=== PATIENT | male | born 1990 | race Caucasian/White ===

== ENCOUNTER 2017-03-31 12:11 | Day surgery (SDC) | payer OTHER ==
[2017-03-31] VITALS (7 sets, daily range): BP systolic 107–129; BP diastolic 75–88; PULSE 82–116; RESP 13–18; O2SAT 96–99
[~2017-03-31] VITALS: Ht 172.7 cm; Wt 72.2 kg
[~2017-03-31 12:11] MED LIST: ATOM80CA PO; BUPR75TA10 PO; CLIN300C3 PO; CeFAZolin Inj 2 GM in IV Premix 1 EACH IV ONE; IBUP-1827 PO; Lactated Ringer's 1,000 ML IV SCH; RES15 PO
[2017-03-31] MEDS ORDERED: Propofol 10,000 mCg/mL 20 mL Inj ONE (12:12)
[2017-03-31] MEDS ORDERED: fentaNYL-PF 50 mCg/mL 2 mL Inj ONE (12:12)
[2017-03-31] MEDS ORDERED: Ondansetron 2 mg/mL 2 mL Inj ONE (12:12)
[2017-03-31] MEDS ORDERED: Lidocaine PF 1% 30 mL Inj ONE (12:12)
[2017-03-31] MEDS: Lactated Ringer's 1,000 ML IV SCH ×2 (12:28→18:57)
[2017-03-31] MEDS ORDERED: CeFAZolin Inj 2 gm / 50mL D5W IV ONE (12:41)
[2017-03-31] MEDS ORDERED: EPHEDrine Sulfate 50 mg/mL Inj IVPUSH PRN (15:00)
[2017-03-31] MEDS ORDERED: fentaNYL-PF 50 mCg/mL 2 mL Inj IVPUSH PRN (15:00)
[2017-03-31] MEDS ORDERED: Dexamethasone 4 mg/mL Inj IVPUSH PRN (15:00)
[2017-03-31] MEDS ORDERED: Ondansetron 2 mg/mL 2 mL Inj IVPUSH PRN (15:00)
[2017-03-31] MEDS ORDERED: Lactated Ringer's 500 ML IV PRN (15:00)
[2017-03-31] MEDS ORDERED: Lactated Ringer's 1,000 ML IV SCH (15:00)
[2017-03-31] MEDS ORDERED: HYDROmorphone 1 mg/mL Inj IVPUSH PRN (15:00)
[2017-03-31] MEDS ORDERED: Phenylephrine 10,000 mCg/mL Inj IVPUSH PRN (15:00)
[2017-03-31] MEDS ORDERED: MetoCLOpramide 5 mg/mL 2 mL Inj IVPUSH PRN (15:00)
--- NOTE | 2017-03-31 15:00 | PCM.HPANE ---
Patient Data Date of Service: March 31, 2017 Surgeon Admitting Provider: Attending Provider:Genaro John MD Primary Care Physician:Nopduncan Other Provider:Sumeet De La Cruz Anesthesia Reason for Visit Left Long Finger Extensor Tendon Laceration Ht/WT & BMI Height (Feet): 5 Height (Inches): 8 Weight (Kilograms): 72.2 Body Mass Index .00 Allergies Coded Allergies: No Known Allergies (Unverified , 03/31/17) Past Anesthesia History Anesthesia History: Denies:: Fam Anesthesia Reaction, Fam Malignant Hypertherm Diabetes History Hx Diabetes?: No MRSA MRSA: No Medications Hypertension Medication: No Home Meds Incl Beta Jose: No Reported Medications Temazepam 15 Mg [id number] Mg PO HS PRN For Insomnia 30 Days Ref 0 03/30/17 Atomoxetine (Strattera)80 Mg [id number] Mg PO BID 03/30/17 Ibuprofen 600 Mg [id number] Mg PO QID PRN For Pain Ref 0 03/30/17 Clindamycin HCl (Cleocin)300 Mg [id number] Mg PO Q8H x 7 days ?start 03/07/17 03/30/17 Bupropion 75 Mg [id number] Mg PO DAILY Ref 0 03/30/17 History History of ENT Problems?: No HEENT History: Denies:: Abnormal Airway Denture Type: None Teeth Condition: Within Normal Limits Hx of Heart Problems?: No Cardiovascular History: Denies:: Heart Murmur Hypertension Hx of Respiratory Problem?: No Respiratory History: Denies:: Use of C-PAP Machine Hx Neurologic Problems?: No Hx of GI Problems?: No Hx of Problems?: No Male Hx: Denies:: Prostate Problems Scrotal Mass Testicular Surgery Skin History: Denies:: History Skin Disorders? Pressure Ulcers Hx Musculoskeletal Problems?: Yes Musculoskeletal History: Positive for:: Musculoskeletal Trauma (LT LONG FINGER EXTENSOR TEWNDON LACERATION=CURRENT PROBLEM (DOI 03/27/17)) Hx of Psycho/Social Problems?: Yes Psycho Social History: Positive for:: Anxiety Hx Depression Other History/Comment ADD Hx Surgeries?: No Hx Any Other Health Problems?: No Other History: Denies:: Cancer Endocrine Disease Hospitalization Thyroid Disease Hx Diabetes: No Hx Alcohol Use: YesHx Substance Use: No Smoking Status: Former Smoker Have You Smoked inLast 12 mo: No Stop/Bang Treated for Sleep Apnea?: No Do You Have a CPAP Machine?: No S-Snoring: Do You Snore Loudly: No T-Tired: feel tired, fatigued: No O-Obsered: Observed not breath: No P-Blood Pressure: treated: No B- Body Mass Index > 35 kg/m2: No A- Age over 50: No N- Neck Large Circumference: No G- Gender Male: Yes YOSVANY Total Score: 1 YOSVANY Risk Assessment: Low Risk, <3 Yes Risk Assessment Category Category 1A: Patient has history of documented sleep apnea, and HAS NOT received any narcotic, sedative or anesthesia administration during this stay. Category 1B: Patient has history of documented sleep apnea, and HAS received any narcotic , sedative or anesthesia administration during this stay Category 2: Patient has SUSPECTED Obstructive Sleep Apnea, and HAS received any narcotic , sedative or anesthesia administration during this stay. Category 3: Patient has SUSPECTED Obstructive Sleep Apnea and HAS NOT received narcotic, sedative or anesthesia administration during this stay. Category 4: Outpatient in Procedural Areas with known sleep apnea or who screen positive for High Risk via the STOP/BANG questionnaire. Exam Exam Vital Signs Vital Signs Date Time Temp Pulse Resp B/P Pulse Ox O2 Delivery O2 Flow Rate FiO2 03/31/17 12:28 36.4 84 16 109/79 99 Room Air General Appearance: Alert, Oriented X3, Cooperative HEENT/AIRWAY: MP 1, Neck Movement (Full), Mouth Opening (Wide) Lungs: Clear to Auscultation, Normal Air Movement Heart: Regular Rate/Rhythm, Normal S1, Normal S2 Meds/Labs/Diagnostics Admission Meds Current Medications Lactated Ringer's (Lr) 1,000 ml @ 120 mls/hr Q8H20M IV Last administered on t 12:28; Start 03/31/17 at 05:00; Stop 03/31/17 at 13:19; Status DC Plan Impression Patient chart reviewed, patient interviewed and anesthestic plan with risks, benefits, and alternatives discussed, and informed consent obtained. ASA Physical Status: ASA2 Mod Systemic Disease Anesthetic Plan: GA Bene/Risks/Altern/Consents: Yes HP Complete Prior to Induction: Yes Souleymane Stubbs MD March 31, 2017 14:28
[2017-03-31] MEDS ORDERED: Bupivacaine-MPF 0.5% 30 mL Inj INFILTRATE ONE (19:46)
[2017-03-31] MEDS ORDERED: Gentamicin 40 mg/mL 2 mL Inj IRRIGATION ONE (19:47)
--- NOTE | 2017-03-31 21:31 | PCM.ANEP1 ---
Post Anesthesia PACU Phase 1 Assessment Date of Service: March 31, 2017 Vital Signs Vital Signs Date Time Temp Pulse Resp B/P Pulse Ox O2 Delivery O2 Flow Rate FiO2 03/31/17 21:30 107 18 126/83 98 Simple Mask 8 03/31/17 21:25 36.4 116 14 129/84 98 Simple Mask 8 Anesthetic Administered: GA Level of Alertness: Awake, talking GUTIERREZ's with Equal Strength: Yes Pain: No Nausea or Vomiting: No CV Function & Hydration Stable: Yes Airway Device: Oxygen Delivery: Simple Mask Lungs: Normal Air Movement PACU Phase 2 Assessment Complications: No Follow up Care: No Patient Instructions Provided: N/A Souleymane Stubbs MD March 31, 2017 21:31
[2017-03-31] MEDS ORDERED: oxyCODONE-Acetamin 5-325 mg Tablet PO PRN (21:40)
--- NOTE | 2017-04-01 08:06 | OP ---
[address] [address] OPERATIVE REPORT PATIENT: JESSICA WEISS : 1990 MR#: [id number] ADMIT: 03/31/2017 JOB ID: [id number] DATE OF SURGERY: 03/31/2017 PREOPERATIVE DIAGNOSIS(ES): Left long mallet finger with laceration of extensor tendon, ICD 10 code F 61.412 A and M 20.012. POSTOPERATIVE DIAGNOSIS(ES): Left long mallet finger with laceration of extensor tendon, ICD 10 code F 61.412 A and M 20.012. PROCEDURE: Repair left long finger extensor tendon at the level of the DIP joint, zone I injury and temporary K-wire stabilization of the DIP joint to help protect the repair. CPT code 02647. SURGEON: Dr. Genaro John. ANESTHESIA: General plus supplemental metacarpal nerve block for additional pain analgesia. ESTIMATED BLOOD LOSS: Less than 5 mL. DRAINS: None. COMPLICATIONS: None. SPONGE AND NEEDLE COUNT: Correct. BURLAP BAG SEWER: None. INDICATIONS: A 27-year-old male was cutting a plastic tie at work. The tie snapped and his knife slipped and he sustained an oblique laceration over the DIP joint distal phalanx of the left long finger. The patient already had compensatory swan-neck deformity at the PIP joint due to overpull of the lateral bands from the extensor tendon laceration. PROCEDURE IN DETAIL: Under adequate general anesthesia, a well-padded tourniquet was applied to the left upper extremity. Left arm was prepped and draped in a sterile fashion. The sutures were removed from the dorsal aspect of the finger laceration and the wound was thoroughly irrigated with antibiotic solution. The patient was found to have enough tendon distally to allow for a primary repair rather than requiring a suture anchor. In order to stabilize the very unstable DIP joint during the repair as well as during the early healing phases, I opted to place a 0.45 K-wire directed from the distal aspect of the distal phalanx longitudinally across the joint and into the middle phalanx. This was performed and confirmed in good position on AP and lateral views with image intensification. The pin was cut just below the skin. A single suture was placed over the tip of the guide pin. Attention was next turned to the extensor tendon repair. The proximally based skin flap was slightly lengthened. Each ends of the tendon were exposed. The tendon was then repaired with a silver skold repair with 4-0 FiberWire. The ends of the tendon were able to be reapproximated. The wound was irrigated with saline and the tourniquet deflated. Minimal hemostasis was required and there appeared to be good capillary refill in the skin flap. The skin was reapproximated with horizontal mattress sutures of 4-0 nylon. Xeroform dry sterile dressings were applied and the finger was also additionally protected with a volar finger splint made of fiberglass and then a short-arm volar splint of fiberglass incorporating the long, ring and little fingers. The patient was taken to recovery room in stable condition. Sponge and needle count correct. PLAN: The patient will be seen by hand therapy next week. Plan is for them to remove the splint and make a new custom finger splint to keep the finger extended. 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 The patient was discharged to home on Percocet 10/325, 1/2 to 1 tablets q.6 hours p.r.n. pain and a prescription for Keflex 500 mg three times a day.
--- NOTE | 2017-04-01 08:07 | DRSVH ---
PROCEDURE: X-RAY FLUORO MINI C-ARM IN SURGERY INDICATIONS: LEFT LONG FINGER, INTRAOPERATIVE IMAGES FROM O.R. COMPARISON: None. FINDINGS: 2 intraoperative spot films are submitted for interpretation, and demonstrate an internal fixation pin traversing the distal and middle phalanx of the digit. IMPRESSION: ORIF as described above. Dictated by: Zac Montana M.D. on 04/01/2017 at 8:05 Approved by: Zac Montana M.D. on 04/01/2017 at 8:06
== END 2017-03-31 23:59 | disposition home or self-care (01) ==
LOC: SAS 12:11
PROVIDERS: ATTEND Orthopaedic Surgery
DX: S66.323A Laceration of extensor muscle, fascia and tendon of left middle finger at wrist and hand level, initial encounter (principal); S61.213A Laceration without foreign body of left middle finger without damage to nail, initial encounter; M20.012 Mallet finger of left finger(s); W26.0XXA Contact with knife, initial encounter
CPT/HCPCS: 26433; J0690; J1580; J2250; J2405; J3010; J7120